=== PATIENT | male | born 1975 | race Caucasian/White ===

== ENCOUNTER → 2017-12-21 | Outpatient (CLI) | payer OTHER ==
[~2017-12-21] MED LIST: IOPAMIDOL 370 MG/ML 200 ML INFUS..BTL INJ ONE; SODIUM CHLORIDE 0.9% 50ML 50 ML ONE
--- NOTE | 2017-12-21 19:08 | Diagnostic Imaging Report ---
PROCEDURE: CT ABDOMEN WITH CONTRAST TECHNIQUE: The abdomen was scanned utilizing a multidetector helical scanner from the diaphragm to the iliac crest after the IV administration of 100 cc of Isovue 370 and the oral administration of water . Coronal and sagittal multiplanar reformations were obtained. COMPARISON: None. INDICATIONS: RIGHT UPPER ABDOMINAL PAIN. CHOLECYSTITIS FINDINGS: LOWER THORAX: Unremarkable. HEPATOBILIARY: Decreased attenuation of the hepatic parenchyma compared to the spleen, consistent with steatosis. No focal hepatic lesions. No biliary ductal dilatation. The gallbladder is unremarkable, without stones, sludge, wall thickening, or pericholecystic fluid. SPLEEN: No splenomegaly. PANCREAS: No focal masses or ductal dilatation. ADRENALS: No adrenal nodules. KIDNEYS: No hydronephrosis, stones, or solid mass lesions. PERITONEUM / RETROPERITONEUM: No free air or fluid. LYMPH NODES: No lymphadenopathy. VESSELS: Unremarkable. GI TRACT: Visualized portions of the bowel demonstrate no distention , obstruction or wall thickening. Stomach is moderately distended, but grossly unremarkable. BONES AND SOFT TISSUES: No acute bony abnormalities. No aggressive lytic lesions. IMPRESSION: 1. no acute abdominal abnormalities. Specifically, no acute abnormal findings in the right upper abdomen to explain the patient's pain. 2. No CT evidence of cholelithiasis or cholecystitis. Onesimo Haney M.D. Dictated by: Onesimo Haney M.D. on 12/21/2017 at 19:10 Electronically approved by: Onesimo Haney M.D. on 12/21/2017 at 19:10
== END ==
LOC: CT 17:22
PROVIDERS: ATTEND Internal Medicine
DX: R10.10 Upper abdominal pain, unspecified (principal); K29.90 Gastroduodenitis, unspecified, without bleeding; K31.84 Gastroparesis
CPT/HCPCS: 74160; Q9967

== ENCOUNTER 2017-12-27 17:57 | Inpatient (IN) | payer OTHER ==
[~2017-12-27] VITALS: Ht 175.3 cm; Wt 74.4 kg
--- OUTSIDE RECORDS SUMMARY | 2017-12-27 17:59 | XMS REPORT ---
Author Author [facility] Address Unknown Phone Unavailable Care Team Providers Care Decorating Instructor Name Role Phone RADHA GILMORE Unavailable Unavailable Problems This patient has no known problems. Allergies, Adverse Reactions, Alerts This patient has no known allergies or adverse reactions. Medications This patient has no known medications. Results Test Description Test Time Test Comments Text Results Atomic Results Result Comments CT ABDOMEN [place] [address] Patient Name: AMY HERRING MR # : [id number] : 1975 Age/Sex: 42/M Req #: [id number] Adm Physician: Ordered by: RADHA GILMORE MD Report #: [id number] Location: CT Room/Bed: Procedure: CT/CT ABDOMEN W Exam Date: 12/21/17 Exam Time: 1800 REPORT STATUS: Signed PROCEDURE: CT ABDOMEN WITH CONTRAST TECHNIQUE: The abdomen was scanned utilizing a multidetector helical scanner from the diaphragm to the iliac crest after the IV administration of 100 cc of Isovue 370 and the oral administration of water . Coronal and sagittal multiplanar reformations were obtained. COMPARISON: None. INDICATIONS: RIGHT UPPER ABDOMINAL PAIN. CHOLECYSTITIS FINDINGS: LOWER THORAX: Unremarkable. HEPATOBILIARY: Decreased attenuation of the hepatic parenchyma compared to the spleen, consistent with steatosis. No focal hepatic lesions. No biliary ductal dilatation. The gallbladder is unremarkable, without stones, sludge, wall thickening, or pericholecystic fluid. SPLEEN: No splenomegaly. PANCREAS: No focal masses or ductal dilatation. ADRENALS: No adrenal nodules. KIDNEYS: No hydronephrosis, stones, or solid mass lesions. PERITONEUM / RETROPERITONEUM: No free air or fluid. LYMPH NODES: No lymphadenopathy. VESSELS: Unremarkable. GI TRACT: Visualized portions of the bowel demonstrate no distention , obstruction or wall thickening. Stomach is moderately distended, but grossly unremarkable. BONES AND SOFT TISSUES: No acute bony abnormalities. No aggressive lytic lesions. IMPRESSION: 1. no acute abdominal abnormalities. Specifically, no acute abnormal findings in the right upper abdomen to explain the patient's pain. 2. No CT evidence of cholelithiasis or cholecystitis. Purvi Mendoza M.D. Dictated by: Purvi Mendoza M.D. on 12/21/2017 at 19:10 Electronically approved by: Purvi Mendoza M.D. on 12/21/2017 at 19:10 Dictated By: PURVI MENDOZA MD 09 Transcribed By: LIAT on 12/21/171909 COPY TO: RADHA GILMORE MD
--- OUTSIDE RECORDS SUMMARY | 2017-12-27 17:59 | XMS REPORT | Clinical Summary ---
Author Author [facility] Address Unknown Phone Unavailable Care Team Providers Care Lumber Cutter Name Role Phone Jenae Carr MD PCP Allergies No Known Allergies Current Medications Prescription Sig. Disp. Refills Start End Date Status Date ondansetron (ZOFRAN) 4 MG Take 4 mg by mouth 4 10/22/19 Discontin tablet (four) times a day as 18 ued needed for nausea or vomiting. canagliflozin-metformin Take 2 tablets by mouth 03/10/20 Discontin (INVOKAMET) 50-500 mg daily. 17 ued tablet sucralfate (CARAFATE) 1 Take 1 tablet (1 g total) 90 tablet 0 04/09/20 gram tablet by mouth 3 (three) times 17 17 a day for 30 days. insulin lispro (HumaLOG) Inject 0-7 Units under 10 mL 12 03/10/20 100 unit/mL injection the skin 3 (three) times 17 17 a day with meals for 30 days. insulin GLARGINE (LANTUS Inject 15 Units under the 5 pen 0 03/10/20 04/09/20 SOLOSTAR) 100 unit/mL skin nightly for 30 days. 17 17 injection (pen) ondansetron (ZOFRAN) 4 MG Take 1 tablet (4 mg 12 tablet 0 10/21/11/19/19 Discontin tablet total) by mouth every 6 18 18 ued (six) hours for 30 days. ondansetron (ZOFRAN) 4 MG Take 1 tablet (4 mg 20 tablet 0 10/21/11/20/19 Discontin tablet total) by mouth 4 (four) 18 18 ued times a day as needed for nausea or vomiting for up to 30 days. metoclopramide (REGLAN) Take 1 tablet (10 mg 120 tablet 0 11/20/19 12/20/19 10 MG tablet total) by mouth 4 (four) 18 18 times a day for 30 days. pantoprazole (PROTONIX) Take 1 tablet (40 mg 30 tablet 0 11/20/19 40 MG EC tablet total) by mouth daily for 18 18 30 days. insulin GLARGINE (LANTUS Inject 15 Units under the 4.5 mL 0 11/20/19 12/20/19 U-100 INSULIN) 100 skin nightly for 30 days. 18 18 unit/mL injection (vial) Active Problems Problem Noted Date Abdominal pain 11/16/2017 Overview: Added automatically from request for surgery [id number] Intractable vomiting 11/16/2017 Overview: Added automatically from request for surgery [id number] Dehydration 03/10/2017 Chronic superficial gastritis without bleeding 03/10/2017 Hyperglycemia 03/09/2017 Encounters Date Type Specialty Care Team Description 11/19/2017 Anesthesia Gastroenterology Marcia Dangelo MD Event 11/19/2017 Procedure Pass Gastroenterology 11/19/2017 Surgery Gastroenterology Jass Dave MD ESOPHAGOGASTRODUODENOSCOP Y (EGD) w/bx 11/18/2017 Anesthesia Gastroenterology Marcia Dangelo MD Event 11/18/2017 Procedure Pass Gastroenterology 11/18/2017 Surgery Gastroenterology Jass Dave MD ESOPHAGOGASTRODUODENOSCOP Y (EGD) 11/16/2017 [facility] General Internal Medicine Frederick Carr MD Abdominal pain, - Encounter unspecified abdominal 11/19/2017 location (Primary Dx); Intractable vomiting, presence of nausea not specified, unspecified vomiting type 11/16/2017 Orders Only General Internal Medicine Frederick Carr MD 10/21/2017 Emergency Emergency Medicine Ozzie Washington MD Vomiting without nausea, intractability of vomiting not specified, unspecified vomiting type (Primary Dx); Weakness 03/11/2017 Documentation Diabetes Services Tameka Cash RN 03/09/2017 [facility] General Internal Medicine Frederick Carr MD Hyperglycemia (Primary - Encounter Dx) 03/10/2017 03/09/2017 Orders Only General Internal Medicine Frederick Carr MD 03/08/2017 Lab Lab Diego Almanza MD Abdominal pain, unspecified location (Primary Dx) after 12/26/2016 Social History Tobacco Use Types Packs/Day Years Used Date Current Some Day Smoker Cigarettes Smokeless Tobacco: Never Used Alcohol Use Drinks/Week oz/Week Comments Yes 3-6 Cans of 1.8 - 3.6 ocassional once or 2x in a month beer Sex Assigned at Date Recorded Not on file Last Filed Vital Signs Vital Sign Reading Time Taken Blood Pressure 105/71 11/19/2017 11:23 AM CDT Pulse 75 11/19/2017 11:23 AM CDT Temperature 36.6 C (97.8 F) 11/19/2017 11:23 AM CDT Respiratory Rate 20 11/19/2017 11:23 AM CDT Oxygen Saturation 98% 11/19/2017 11:23 AM CDT Inhaled Oxygen - - Concentration Weight 74.8 kg (165 lb) 11/18/2017 9:04 AM CDT Height 175.3 cm (5' 9") 11/18/2017 9:04 AM CDT Body Mass Index 24.37 11/18/2017 9:04 AM CDT Plan of Treatment Health Maintenance Due Date Last Done Comments DIABETIC FOOT EXAM 01/10/1986 DIABETIC RETINAL EYE EXAM 01/10/1986 URINE MICROALBUMIN 01/10/1986 INFLUENZA VACCINE 02/16/2018 Procedures Procedure Name Priority Date/Time Associated Diagnosis Comments ESOPHAGOGASTRODUODENOSCOP 11/19/2017 Intractable vomiting, Y (EGD) w/bx 8:57 AM CDT presence of nausea not specified, unspecified vomiting type ESOPHAGOGASTRODUODENOSCOP 11/18/2017 Abdominal pain, Y (EGD) 10:00 AM CDT unspecified abdominal location after 12/26/2016 Results * Surgical pathology request (11/19/2017 10:03 AM) Component Value Ref Range Surgical pathology report See link below for PDF Lab Report Result status This is Final Report to [id number] Specimen Performing Laboratory [facility] [place] [place]Y AND GENOMIC MEDICINE [address] [place] [address] * POC glucose (11/17/2017 8:23 PM) Only the most recent of 10 results within the time period is included. Component Value Ref Range POC glucose 155 (H) 65 - 100 mg/dL Comment: Meter ID: [id number] Human Services Program Specialist: Jackson Frederick Specimen Performing Laboratory [facility] [place] [facility]OLOGY AND GENOMIC MEDICINE [address] [place] [address] * US Abdomen Complete (11/17/2017 6:12 PM) Specimen Performing Laboratory [facility] [address] [place] [address] Narrative EXAM: US ABDOMEN COMPLETE CLINICAL DATA:Abdominal pain, pancreatitis COMPARISON: None. FINDINGS: LIVER:The liver demonstrates normal echogenicity without focal mass or intrahepatic biliary ductal dilatation. MPV:Doppler evaluation of the portal vein demonstrates normal hepatopetal flow. GALLBLADDER:The gallbladder is without evidence of calculi. The gallbladder wall is not thickened and there is no pericholecystic fluid. CBD: Common bile duct is not dilated measuring 2 mm. PANCREAS:The visualized portions of the pancreas are within normal limits. SPLEEN:The spleen is homogeneous and not enlarged. KIDNEYS:The kidneys are normal in size and echogenicity. There is no evidence of hydronephrosis. AORTA:The visualized upper abdominal aorta demonstrates no evidence of ectasia or aneurysm. IVC:The visualized portions of the inferior vena cava are unremarkable. ASCITES: No abnormal abdominal fluid collections are visualized. There is no evidence of ascites. PLEURAL EFFUSION:There are no pleural effusions. IMPRESSION: Normal abdominal ultrasound examination. [facility]-[id number] Procedure Note [facility], Radiology Results Incoming - 11/17/2017 6:20 PM CDT EXAM: US ABDOMEN COMPLETE CLINICAL DATA: Abdominal pain, pancreatitis COMPARISON: None. FINDINGS: LIVER: The liver demonstrates normal echogenicity without focal mass or intrahepatic biliary ductal dilatation. MPV: Doppler evaluation of the portal vein demonstrates normal hepatopetal flow. GALLBLADDER: The gallbladder is without evidence of calculi. The gallbladder wall is not thickened and there is no pericholecystic fluid. CBD: Common bile duct is not dilated measuring 2 mm. PANCREAS: The visualized portions of the pancreas are within normal limits. SPLEEN: The spleen is homogeneous and not enlarged. KIDNEYS: The kidneys are normal in size and echogenicity. There is no evidence of hydronephrosis. AORTA: The visualized upper abdominal aorta demonstrates no evidence of ectasia or aneurysm. IVC: The visualized portions of the inferior vena cava are unremarkable. ASCITES: No abnormal abdominal fluid collections are visualized. There is no evidence of ascites. PLEURAL EFFUSION: There are no pleural effusions. IMPRESSION: Normal abdominal ultrasound examination. [facility]-[id number] * Urinalysis screen and microscopy, with reflex to culture (11/17/2017 1:51 PM) Only the most recent of 3 results within the time period is included. Component Value Ref Range Specimen site Clean catch Color, UA Sue Appearance, UA Clear Specific gravity, UA 1.028 1.001 - 1.035 pH, UA 6.0 5.0 - 8.5 Protein, UA 1+ (A) Negative Glucose, UA Negative Negative Ketones, UA 1+ (A) Negative Bilirubin, UA Negative Negative Blood, UA Negative Negative Nitrite, UA Negative Negative Urobilinogen, UA 4.0 (A) <2.0 Leukocyte esterase, UA Negative Negative WBC, UA 4 (H) 0 - 1 /HPF RBC, UA 2 0 - 5 /HPF Bacteria, UA Trace None seen Yeast, UA None seen Yeast with pseudohyphae, None seen UA Hyaline casts, UA 4 /LPF Specimen Performing Laboratory Urine [facility] [place] [facility]OLOGY AND GENOMIC MEDICINE [address] [place] [address] * Gram stain (11/17/2017 1:50 PM) Component Value Ref Range Gram stain result No WBC's or organisms seen. Comment: Specimen Information Specimen Source: Urine Specimen Site: Clean catch Specimen Performing Laboratory Urine [facility] DEPARTMENT OF PATHOLOGY AND GENOMIC MEDICINE [address] [place] [address] * Urine culture (11/17/2017 1:50 PM) Only the most recent of 3 results within the time period is included. Component Value Ref Range Urine culture isolate Mixed Gram positive kaela 10-2 cfu/ml (A) Comment: Specimen Information Specimen Source: Urine Specimen Site: Clean catch Specimen Performing Laboratory Urine [facility] DEPARTMENT OF PATHOLOGY AND GENOMIC MEDICINE [address] [place] [address] * Estimated GFR (11/17/2017 6:30 AM) Only the most recent of 6 results within the time period is included. Component Value Ref Range GFR Non Af Amer >90 mL/min/1.73 m2 GFR Af Amer >90 mL/min/1.73 m2 Comment: Chronic kidney disease: <60 mL/min/1.73m2 Kidney failure: <15 mL/min/1.73m2 The estimated GFR is calculated from the IDMS-traceable Modification of Diet in Renal Disease Equation. The accuracy of the calculation is poor when the creatinine is normal. Calculated values >90 mL/min/1.73m2 are not reported. This equation has not been validated in children (<18 years), women, the elderly (>70 years), or ethnic groups other than Caucasians and Americans. Specimen Performing Laboratory Plasma specimen [facility] [place] [facility] OF [facility]OLOGY AND GENOMIC MEDICINE [address] [place] [address] * CBC with platelet and differential (11/17/2017 6:30 AM) Only the most recent of 5 results within the time period is included. Component Value Ref Range WBC 7.4 4.2 - 11.0 k/uL RBC 4.81 4.04 - 5.86 m/uL HGB 14.3 13.0 - 17.3 g/dL HCT 42.0 34.0 - 45.0 % MCV 87.3 80.0 - 98.0 fL MCH 29.7 27.0 - 34.0 pg MCHC 34.0 31.5 - 36.5 g/dL RDW - SD 39.8 37.0 - 51.0 fL MPV 10.7 (H) 7.4 - 10.4 fL Platelet count 214 150 - 400 k/uL Nucleated RBC 0.00 /100 WBC Neutrophils 57.6 36.0 - 66.0 % Lymphocytes 30.1 24.0 - 44.0 % Monocytes 10.6 (H) 0.0 - 6.0 % Eosinophils 0.7 0.0 - 6.0 % Basophils 0.9 0.0 - 1.2 % Immature granulocytes 0.1 0.0 - 1.0 % Specimen Performing Laboratory Blood [facility] [place] [facility] OF [facility]OLOGY AND GENOMIC MEDICINE [address] [place] [address] * Lipase level (11/17/2017 6:30 AM) Only the most recent of 4 results within the time period is included. Component Value Ref Range Lipase 99 65 - 230 U/L Specimen Performing Laboratory Plasma specimen [facility] [place] [facility] OF PATHOLOGY AND GENOMIC MEDICINE [address] [place] [address] * Basic metabolic panel (11/17/2017 6:30 AM) Component Value Ref Range Sodium 142 135 - 150 mEq/L Potassium 3.5 3.5 - 5.0 mEq/L Chloride 104 100 - 109 mEq/L CO2 29 24 - 32 mmol/L Anion gap 9 7 - 15 mEq/L Comment: Starting from October , anion gap calculation no longer incorporates potassium. Please note the change. BUN 12 7 - 18 mg/dL Creatinine 0.9 0.8 - 1.5 mg/dL Glucose 120 (H) 65 - 100 mg/dL Calcium 9.6 8.6 - 10.7 mg/dL Specimen Performing Laboratory Plasma specimen [facility] [place] [facility] OF PATHOLOGY AND GENOMIC MEDICINE [address] [place] [address] * Comprehensive metabolic panel (11/16/2017 8:08 PM) Only the most recent of 5 results within the time period is included. Component Value Ref Range Sodium 141 135 - 150 mEq/L Potassium 3.6 3.5 - 5.0 mEq/L Chloride 101 100 - 109 mEq/L CO2 31 24 - 32 mmol/L Anion gap 9 7 - 15 mEq/L Comment: Starting from October , anion gap calculation no longer incorporates potassium. Please note the change. BUN 11 7 - 18 mg/dL Creatinine 1.1 0.8 - 1.5 mg/dL Glucose 138 (H) 65 - 100 mg/dL Calcium 9.6 8.6 - 10.7 mg/dL Protein 8.9 (H) 6.3 - 8.2 g/dL Albumin 4.3 3.2 - 5.0 g/dL A/G ratio 0.9 0.7 - 3.8 Alkaline phosphatase 86 30 - 120 U/L AST 16 15 - 37 U/L ALT 41 30 - 65 U/L Total bilirubin 0.9 0.2 - 1.2 mg/dL Specimen Performing Laboratory Plasma specimen [facility] [place] [facility] OF PATHOLOGY AND GENOMIC MEDICINE [address] [place] [address] * Venous blood gas (10/21/2017 7:39 PM) Component Value Ref Manager Marketing JDZD Collection site RAC O2 therapy ROOM AIR pH, venous 7.411 7.320 - 7.420 units pCO2, venous 52.0 (H) 45.0 - 51.0 mmHg pO2, venous 22.7 (L) 25.0 - 40.0 mmHg O2 saturation, venous 39.6 (L) 40.0 - 70.0 % Base excess, venous 8.4 (H) -2.0 - 2.0 mEq/L Bicarbonate 33.0 (H) 21.0 - 28.0 mEq/L O2 content 9.2 VOL% Carboxyhemoglobin 1.3 0.0 - 1.4 % Comment: Reference Ranges: Carboxyhemoglobin Non smoker: 0.0 - 2.0% Smoker: 2.1 - 5.0% Heavy smoker: 5.1 - 9% Methemoglobin 0.3 0.0 - 1.0 % Hemoglobin, blood gas 16.9 14.0 - 18.0 g/dL Specimen Performing Laboratory Blood [facility] [place] [facility] OF [facility]OLOGY AND GENOMIC MEDICINE [address] [facility] [address] * Beta hydroxybutyrate (10/21/2017 7:05 PM) Only the most recent of 3 results within the time period is included. Component Value Ref Range Beta hydroxybutyrate 1.45 (H) 0.02 - 0.27 mmol/L Specimen Performing Laboratory Blood [facility] [place] [facility] OF [facility]OLOGY AND GENOMIC MEDICINE [address] [place] [address] [place] [address] * Urine drugs of abuse screen (03/10/2017 9:03 AM) Component Value Ref Range Amphetamine screen, urine NEG Barbiturate screen, urine NEG Benzodiazepine screen, NEG urine Cocaine screen, urine NEG Methadone screen, urine NEG Opiates screen, urine NEG Phencyclidine screen, NEG urine Cannabinoid screen, urine NEG Comment: Drug screen minimum concentration of detectability Amphetamines 1000 ng/mL Methamphetamines 1000 ng/mL Barbiturates 300 ng/mL Benzodiazepines 300 ng/mL Cocaine 300 ng/mL Methadone 3 00 ng/mL Opiates 300 ng/mL Phencyclidine 25 ng/mL Cannabinoids 50 ng/mL Tricyclics 1000 ng/mL Negative test results indicates presumptive evidence of lack of clinically significant drug concentration in this urine specimen. Positive test results are presumptive evidence of clinically significant drug concentration in this urine specimen. Testing performed for medical purposes only. Specimen Performing Laboratory Urine [facility] [place] [facility] OF [facility]OLOGY AND GENOMIC MEDICINE [address] [place] [address] [place] [address] * Blood culture, aerobic & anaerobic (03/09/2017 6:55 PM) Only the most recent of 2 results within the time period is included. Component Value Ref Range Blood culture isolate No growth after 5 days of incubation. Comment: Specimen Information Specimen Source: Blood Specimen Site: Peripheral Hand Left Specimen Performing Laboratory Blood [facility] DEPARTMENT OF PATHOLOGY AND GENOMIC MEDICINE [address] [place] [address] * ECG 12 lead (03/09/2017 6:44 PM) Component Value Ref Range Ventricular rate 89 Atrial rate 89 WY interval 138 QRSD interval 84 QT interval 366 QTC interval 445 P axis 1 75 QRS axis 1 84 T wave axis 73 EKG impression Normal sinus rhythm-Nonspecific ST abnormality-Abnormal ECG-No previous ECGs available- Specimen Performing Laboratory [facility] MUSE [address] [place] [address] * CK-MB (03/09/2017 6:36 PM) Component Value Ref Range CK-MB 0.6 0.5 - 3.2 ng/mL Specimen Performing Laboratory Plasma specimen [facility] [place] [facility] OF [facility]OLOGY AND GENOMIC MEDICINE [address] [place] [address] [place] [address] * Troponin (03/09/2017 6:36 PM) Component Value Ref Range Troponin <0.01 0.00 - 0.60 ng/mL Comment: 0.11 - 1.49 ng/ml May indicate increased risk of acute coronary syndrome. >=1.5 ng/ml Consistent with acute myocardial infarction. The diagnostic value of a single normal or non-diagnostic result is questionable. Serial samples at 2-6 hour intervals are required to rule out acute myocardial injury. Specimen Performing Laboratory Plasma specimen [facility] [place] [facility] OF [facility]OLOGY AND GENOMIC MEDICINE [address] [place] [address] [place] [address] * Magnesium level (03/09/2017 6:36 PM) Component Value Ref Range Magnesium 2.30 1.60 - 2.40 mg/dL Specimen Performing Laboratory Plasma specimen [facility] [place] [facility] OF [facility]OLOGY AND GENOMIC MEDICINE [address] [place] [address] [place] [address] * Hemoglobin A1c (03/09/2017 6:36 PM) Component Value Ref Range Hemoglobin A1C 11.1 (H) 4.0 - 6.0 % Comment: Less than 6% - Goal of therapy for Type II Diabetes Less than 7%- Goal of therapy for Type I Diabetes Less than 8%- Acceptable control for Type I or Type II Diabetes Greater than 8%- Unacceptable control; action indicated. (A [id number]) Specimen Performing Laboratory Blood [facility] [place] [facility] OF [facility]OLOGY AND GENOMIC MEDICINE [address] [place] [address] [place] [address] * Creatine kinase, total (CPK) (03/09/2017 6:36 PM) Component Value Ref Range Creatine kinase 49 (L) 61 - 224 U/L Specimen Performing Laboratory Plasma specimen [facility] [place] [facility] OF [facility]OLOGY AND GENOMIC MEDICINE [address] [place] [address] * Amylase level (03/09/2017 6:36 PM) Only the most recent of 2 results within the time period is included. Component Value Ref Range Amylase 75 34 - 122 U/L Specimen Performing Laboratory Plasma specimen [facility] [place] [facility] OF PATHOLOGY AND GENOMIC MEDICINE [address] [place] [address] after 12/26/2016 Insurance Payer Benefit Subscriber ID Type Phone Address Plan / Group [facility] xxxxxxxxx HMO/PPO THCARE CHOICE/[place] + [place] [address]
[2017-12-27 18:48] LABS: BASOPHILS # (AUTO) 0.1 (0.0-0.1); BASOPHILS % 0.9 % (0.0-1.0); EOSINOPHILS # (AUTO) 0.1 (0.0-0.4); EOSINOPHILS % 1.1 % (0.0-6.0); HEMOGLOBIN 16.1 g/dL (14.0-18.0); LYMPHOCYTES # (AUTO) 1.9 (1.0-3.2); LYMPHOCYTES % 24.9 % (18.0-39.1); MEAN CORPUSCULAR HEMOGLOBIN 29.8 pg (28-32); MEAN CORPUSCULAR HGB CONC 34.3 g/dL (31-35); MEAN CORPUSCULAR VOLUME 86.9 fL (81-99); MONOCYTES # (AUTO) 0.6 (0.2-0.8); MONOCYTES % 8.1 % (4.4-11.3); NEUTROPHILS # (AUTO) 4.9 (2.1-6.9); NEUTROPHILS % 64.6 % (38.7-80.0); PLATELET COUNT 283 x10e3/uL (140-360); RED BLOOD COUNT 5.41 x10e6/uL (4.3-5.7); RED CELL DISTRIBUTION WIDTH 12.1 % (11.7-14.4)
[2017-12-27 19:07] LABS: ALANINE AMINOTRANSFERASE 23 IU/L (0-55); ALBUMIN 4.7 g/dL (3.5-5.0); ALBUMIN/GLOBULIN RATIO 1.2 (0.8-2.0); ALKALINE PHOSPHATASE 72 IU/L (40-150); ANION GAP 16.9 mmol/L (8-16); BLOOD UREA NITROGEN 17 mg/dL (7-26); BUN/CREATININE RATIO 16 (6-25); CALCIUM 10.3 mg/dL (8.4-10.2); CARBON DIOXIDE 28 mmol/L (22-29); CHLORIDE 99 mmol/L (98-107); CREATININE, SERUM 1.09 mg/dL (0.72-1.25); EST GLOMERULAR FILTRATION RATE > 60 ML/MIN (60-); GLUCOSE 101 mg/dL (74-118); POTASSIUM 3.9 mmol/L (3.5-5.1); SODIUM 140 mmol/L (136-145)
[2017-12-27 19:10] LABS: BILIRUBIN,URINE 2+ (NEGATIVE); CLARITY,URINE CLEAR (CLEAR); COLOR,URINE ORANGE (YELLOW); KETONES,URINE 2+ (NEGATIVE); LEUKOCYTE ESTERASE ,URINE NEGATIVE (NEGATIVE); NITRITE,URINE NEGATIVE (NEGATIVE); PROTEIN,URINE DIPSTICK 1+ (NEGATIVE); URINE UROBILINOGEN 1 mg/dL (0.2 - 1)
[2017-12-27 19:17] LABS: AMYLASE 141 U/L (25-125); LIPASE 21 U/L (8-78)
[2017-12-27 19:22] LABS: EPITHELIAL CELLS,URINE FEW /LPF; MUCUS,URINE FEW (RARE); RBC,URINE 0-5 /HPF (0-5); WBC,URINE (MAN) 0-5 /HPF (0-5)
[2017-12-27 19:30] LABS: AMPHETAMINES SCREEN,URINE NEGATIVE (NEGATIVE); BENZODIAZEPINES SCREEN,URINE NEGATIVE (NEGATIVE); PHENCYCLIDINE SCREEN,URINE NEGATIVE (NEGATIVE)
[2017-12-27] MEDS ORDERED: PANTOPRAZOLE 40 MG 10ML VIAL IV STA (19:38)
[2017-12-27] MEDS ORDERED: ONDANSETRON HCL INJ 2 MG/ML VIAL IV STA (19:38)
[2017-12-27] MEDS ORDERED: SODIUM CHLORIDE 0.9% 1000ML 1,000 ML IV SCH (19:45)
[2017-12-27] MEDS ORDERED: METOCLOPRAMIDE HCL 10 MG/2ML VIAL IV ONE (20:00)
[2017-12-27] MEDS ORDERED: ONDANSETRON HCL 4 MG ORAL DISINTEGRATING TAB PO ONE (20:15)
[2017-12-27] MEDS ORDERED: DEXTROSE 50% SYRINGE 50 ML IV PRN (20:30)
[2017-12-27] MEDS ORDERED: ONDANSETRON HCL INJ 2 MG/ML VIAL IV PRN (20:30)
[2017-12-27] MEDS ORDERED: SODIUM CHLORIDE 0.9% 1000ML 1,000 ML IV ONE (20:30)
[2017-12-27] MEDS ORDERED: MORPHINE SULFATE 2 MG/ML SYR IV PRN (20:30)
[2017-12-27] MEDS ORDERED: INSULIN REGULAR, HUMAN 100 UNIT/1 ML 3ML VIAL SQ SCH (21:00)
--- OUTSIDE RECORDS SUMMARY | 2017-12-27 21:14 | XMS REPORT | Clinical Summary ---
Author Author [employer] Address Unknown Phone Unavailable Care Team Providers Care Manager Card Name Role Phone Jenae Carr MD PCP [...] Overview: Added automatically from request for surgery [id number] Intractable vomiting 11/16/2017 Overview: Added automatically from request for surgery [id number] Dehydration 03/10/2017 Chronic superficial gastritis without bleeding 03/10/2017 Hyperglycemia 03/09/2017 Encounters Date Type Specialty Care Team Description 11/19/2017 Anesthesia Gastroenterology Marcia Dangelo MD Event 11/19/2017 Procedure Pass Gastroenterology 11/19/2017 Surgery Gastroenterology Jass Dave MD ESOPHAGOGASTRODUODENOSCOP Y (EGD) w/bx 11/18/2017 Anesthesia Gastroenterology Marcia Dangelo MD Event 11/18/2017 Procedure Pass Gastroenterology 11/18/2017 Surgery Gastroenterology Jass Dave MD ESOPHAGOGASTRODUODENOSCOP Y (EGD) 11/16/2017 [facility] General Internal Medicine Frederick Carr MD [...] Documentation Diabetes Services Tameka Cash RN 03/09/2017 [facility] General Internal Medicine Frederick Carr MD [...] Result status This is Final Report to [id number] Specimen Performing Laboratory [facility]OM[facility]IC[facility] [place] [address] * POC glucose (11/17/2017 8:23 PM) Only the most recent of 10 results within the time period is included. Component Value Ref Range POC glucose 155 (H) 65 - 100 mg/dL Comment: Meter ID: [id number] Business Account Specialist: Jackson Frederick Specimen Performing Laboratory [facility] [address] [place] [address] * US Abdomen Complete (11/17/2017 6:12 PM) Specimen Performing Laboratory [facility] [address] [place] [address] Narrative EXAM: US ABDOMEN COMPLETE CLINICAL DATA:Abdominal [...] pleural effusions. IMPRESSION: Normal abdominal ultrasound examination. [facility]-[id number] Procedure Note [facility], Radiology Results Incoming - 11/17/2017 6:20 [...] pleural effusions. IMPRESSION: Normal abdominal ultrasound examination. [facility]-[id number] * Urinalysis screen and microscopy, with reflex [...] UA 4 /LPF Specimen Performing Laboratory Urine [facility] [address] [place] [address] * Gram stain (11/17/2017 1:50 PM) Component Value Ref Range Gram stain result No WBC's or organisms seen. Comment: Specimen Information Specimen Source: Urine Specimen Site: Clean catch Specimen Performing Laboratory Urine [facility] DEPARTMENT OF PATHOLOGY AND GENOMIC MEDICINE [address] [place] [address] * Urine culture (11/17/2017 1:50 PM) Only the most recent of 3 results within the time period is included. Component Value Ref Range Urine culture isolate Mixed Gram positive kaela 10-2 cfu/ml (A) Comment: Specimen Information Specimen Source: Urine Specimen Site: Clean catch Specimen Performing Laboratory Urine [facility] DEPARTMENT OF PATHOLOGY AND GENOMIC MEDICINE [address] [place] [address] * Estimated GFR (11/17/2017 6:30 AM) Only [...] and Americans. Specimen Performing Laboratory Plasma specimen [facility]OM[facility]IC[facility] [address] [place] [address] * CBC with platelet and differential (11/17/2017 [...] - 1.0 % Specimen Performing Laboratory Blood [facility]OMIC MEDICINE [address] [place] [address] * Lipase level (11/17/2017 6:30 AM) Only the most recent of 4 results within the time period is included. Component Value Ref Range Lipase 99 65 - 230 U/L Specimen Performing Laboratory Plasma specimen [facility]OM[facility] [address] [place] [address] * Basic metabolic panel (11/17/2017 6:30 AM) [...] 10.7 mg/dL Specimen Performing Laboratory Plasma specimen [facility]OM[facility] [address] [place] [address] * Comprehensive metabolic panel (11/16/2017 8:08 PM) [...] 1.2 mg/dL Specimen Performing Laboratory Plasma specimen [facility]OMIC [facility]IC[facility] [address] [place] [address] * Venous blood gas (10/21/2017 7:39 PM) Component Value Ref Produce Production Team Member JDZD Collection site RAC O2 therapy ROOM [...] - 18.0 g/dL Specimen Performing Laboratory Blood [facility] MED[facility] [address] [facility] [place] [place] [address] * Beta hydroxybutyrate (10/21/2017 7:05 PM) Only the most recent of 3 results within the time period is included. Component Value Ref Range Beta hydroxybutyrate 1.45 (H) 0.02 - 0.27 mmol/L Specimen Performing Laboratory Blood [facility]OM[facility] MEDIC[facility] [address] [place] [address] [place] [address] * Urine drugs of abuse screen (03/10/2017 [...] medical purposes only. Specimen Performing Laboratory Urine [facility]OMIC MEDICINE [address] [place] [address] [place] [address] * Blood culture, aerobic & anaerobic (03/09/2017 6:55 PM) Only the most recent of 2 results within the time period is included. Component Value Ref Range Blood culture isolate No growth after 5 days of incubation. Comment: Specimen Information Specimen Source: Blood Specimen Site: Peripheral Hand Left Specimen Performing Laboratory Blood [facility] DEPARTMENT OF PATHOLOGY AND GENOMIC MEDICINE [address] [place] [address] * ECG 12 lead (03/09/2017 6:44 PM) Component Value Ref Range Ventricular rate 89 Atrial rate 89 NH interval 138 QRSD interval 84 QT interval 366 QTC interval 445 P axis 1 75 QRS axis 1 84 T wave axis 73 EKG impression Normal sinus rhythm-Nonspecific ST abnormality-Abnormal ECG-No previous ECGs available- Specimen Performing Laboratory [facility] [address] [place] [address] * CK-MB (03/09/2017 6:36 PM) Component Value Ref Range CK-MB 0.6 0.5 - 3.2 ng/mL Specimen Performing Laboratory Plasma specimen [facility]OMIC [facility]IC[facility] [address] [place] [address] [place] [address] * Troponin (03/09/2017 6:36 PM) Component Value [...] myocardial injury. Specimen Performing Laboratory Plasma specimen [facility]OMIC [facility]ICINE [address] [place] [address] [place] [address] * Magnesium level (03/09/2017 6:36 PM) Component Value Ref Range Magnesium 2.30 1.60 - 2.40 mg/dL Specimen Performing Laboratory Plasma specimen [facility]OMIC [facility]ICINE [address] [place] [address] [place] [address] * Hemoglobin A1c (03/09/2017 6:36 PM) Component [...] indicated. (A DA94) Specimen Performing Laboratory Blood [facility]OM[facility]IC[facility] [address] [place] [address] [place] [address] * Creatine kinase, total (CPK) (03/09/2017 6:36 PM) Component Value Ref Range Creatine kinase 49 (L) 61 - 224 U/L Specimen Performing Laboratory Plasma specimen [facility]OMIC [facility]IC[facility] [address] [place] [address] * Amylase level (03/09/2017 6:36 PM) Only the most recent of 2 results within the time period is included. Component Value Ref Range Amylase 75 34 - 122 U/L Specimen Performing Laboratory Plasma specimen [facility]OM[facility] [address] [place] [address] after 12/26/2016 Insurance Payer Benefit Subscriber ID Type Phone Address Plan / Group [facility] xxxxxxxxx HMO/PPO THCARE CHOICE/[place] + [place] [address]
[2017-12-27] MEDS: SODIUM CHLORIDE 0.9% 1000ML 1,000 ML IV SCH (21:46)
[2017-12-27] MEDS ORDERED: NORVASC5 MG PO (21:50)
[2017-12-27] MEDS ORDERED: PANTOPRAZOLE SO40 MG PO (22:42)
[2017-12-27] MEDS ORDERED: METOCLOPRAMIDE10 MG PO (22:42)
[2017-12-27] MEDS ORDERED: LANTUS 3ML100 UNITS/ SQ (22:42)
[2017-12-27] MEDS: INSULIN REGULAR, HUMAN 100 UNIT/1 ML 3ML VIAL SQ SCH (23:20)
[2017-12-27 23:28] VITALS: BP 127/58
[2017-12-27] MEDS: METOCLOPRAMIDE HCL 10 MG/2ML VIAL IV SCH (23:33)
[2017-12-27 23:39] VITALS: BP 127/58
[2017-12-28] VITALS (7 sets, daily range): BP systolic 109–134; BP diastolic 64–81
[2017-12-28] MEDS: SODIUM CHLORIDE 0.9% 1000ML 1,000 ML IV SCH (05:24)
[2017-12-28] MEDS: METOCLOPRAMIDE HCL 10 MG/2ML VIAL IV SCH ×3 (06:00→18:00)
[2017-12-28] MEDS: INSULIN REGULAR, HUMAN 100 UNIT/1 ML 3ML VIAL SQ SCH ×3 (06:00→18:00)
[2017-12-28 06:26] LABS: BASOPHILS # (AUTO) 0.1 (0.0-0.1); BASOPHILS % 1.1 % (0.0-1.0); EOSINOPHILS # (AUTO) 0.2 (0.0-0.4); EOSINOPHILS % 2.3 % (0.0-6.0); HEMATOCRIT 39.3 % (38.2-49.6); HEMOGLOBIN 13.4 g/dL (14.0-18.0); LYMPHOCYTES # (AUTO) 2.5 (1.0-3.2); LYMPHOCYTES % 37.6 % (18.0-39.1); MEAN CORPUSCULAR HEMOGLOBIN 29.5 pg (28-32); MEAN CORPUSCULAR HGB CONC 34.1 g/dL (31-35); MEAN CORPUSCULAR VOLUME 86.6 fL (81-99); MONOCYTES # (AUTO) 0.6 (0.2-0.8); MONOCYTES % 9.4 % (4.4-11.3); NEUTROPHILS # (AUTO) 3.3 (2.1-6.9); NEUTROPHILS % 49.3 % (38.7-80.0); PLATELET COUNT 237 x10e3/uL (140-360); RED BLOOD COUNT 4.54 x10e6/uL (4.3-5.7)
[2017-12-28 06:55] LABS: ALANINE AMINOTRANSFERASE 18 IU/L (0-55); ALBUMIN 3.8 g/dL (3.5-5.0); ALBUMIN/GLOBULIN RATIO 1.3 (0.8-2.0); ALKALINE PHOSPHATASE 56 IU/L (40-150); ANION GAP 11.4 mmol/L (8-16); BLOOD UREA NITROGEN 14 mg/dL (7-26); BUN/CREATININE RATIO 18 (6-25); CARBON DIOXIDE 26 mmol/L (22-29); CHLORIDE 105 mmol/L (98-107); EST GLOMERULAR FILTRATION RATE > 60 ML/MIN (60-); GLUCOSE 70 mg/dL (74-118); LIPASE 20 U/L (8-78); POTASSIUM 3.4 mmol/L (3.5-5.1); SODIUM 139 mmol/L (136-145)
[2017-12-28] MEDS: PANTOPRAZOLE 40 MG 10ML VIAL IV SCH ×2 (09:00→17:00)
--- NOTE | 2017-12-28 11:01 | History and Physical ---
A 42-year-old male patient of mine presented with the complaint of severe abdominal pain, nausea and vomiting, and unable to keep down any food. HISTORY OF PRESENT ILLNESS: Mr. Zackery Masterson is a 42-year-old male patient presented with right upper quadrant and right epigastric area pain, tenderness, nausea, vomiting, and inability to keep up with oral food. The patient was admitted to the hospital. Earlier in the ER, had been seen by the GI doctor. The patient continued to have severe problem. EGD was done. The patient had in the right lung. The patient was not improving. CT scan outpatient was done. The patient had a high amylase and lipase. The patient was referred to GI as an outpatient. Yesterday, the patient came in with severe symptoms. The patient was having significant pain and was dehydrated. The patient was sent to the hospital for admission. ALLERGIES: NO KNOWN DRUG ALLERGIES. MEDICATIONS: The patient was on Protonix, Reglan and Lantus. SOCIAL HISTORY: Denies smoking. Denies alcohol. FAMILY HISTORY: Diabetes mellitus. Endoscopy was done. REVIEW OF SYSTEMS: Per history of present illness. PHYSICAL EXAMINATION GENERAL: He is a male patient lying in bed not in acute distress. VITALS: Temperature 98.6, pulse 75, blood pressure 130/80, respirations 20. HEENT: Normocephalic and atraumatic. No lymphadenopathy. LUNGS: Bilateral equal air entry. No rales. No rhonchi. HEART: S1 and S2 regular. ABDOMEN: Soft. Epigastric tenderness present. NEUROLOGICAL: No focal neurological deficit. ADMISSION IMPRESSION/DIAGNOSES 1. Intractable epigastric abdominal pain. 2. Gastritis. 3. Possible pancreatitis. 4. Dehydration. 5. Suspect cholecystitis. 6. Diabetes mellitus with gastroparesis. PLAN: The patient will be admitted with the above diagnoses. Will treat the patient with IV fluids and Protonix will be given. GI consult, Dr. Urena. The patient will be getting gastric emptying study and HIDA scan. Job#: [id number] [place]
[2017-12-28] MEDS: KCL 20MEQ/.9 SOD CHL 1,000 ML IV SCH (13:20)
[2017-12-28] MEDS ORDERED: SINCALIDE 3 MCG/VIAL INJ ONE (15:23)
--- NOTE | 2017-12-28 20:14 | Diagnostic Imaging Report ---
Solid-phase gastric emptying study Reason for examination: 42 M with chronic nausea and vomiting The protocol used for this study is based on the Consensus Recommendations for Gastric Scintigraphy by the [place] [employer] Society and the Society of Nuclear Medicine. Clinical information: The patient is diabetic; blood glucose level this morning is 67 mg/dL. The patient has not had previous gastrointestinal surgery. The patient is taking expected to metoclopramide as recently as yesterday; this may affect gastric motility. The patient has been fasting for at least 6 hours prior to this exam. Radiopharmaceutical: Tc-99m sulfur colloid 1 mCi Report: The radiopharmaceutical was added to 1/2 cup egg whites that were then prepared and served with 2 pieces of white bread toasted, 30 grams of jam and 4 ounces of water. The patient took the meal orally without difficulty. Images were obtained of the abdomen in the anterior and posterior projections at 10 minutes post the meal and at 1and 2 hours. Uptake was determined from the geometric mean of the anterior and posterior counts and the counts were corrected for decay of the radiolabel. The percent gastric retention of the labeled meal at: 1 hour was 83% (normal 30-90%) 2 hours was 67% (normal <60; if >55%, study is abnormal) Impression: The pattern of gastric emptying is prolonged. Scan findings support the clinical diagnosis of gastroparesis. Signed by: Dr. Kiki Funes M.D. on 12/28/2017 8:11 PM
--- NOTE | 2017-12-28 20:17 | Diagnostic Imaging Report ---
Hepatobiliary Scan with Gallbladder Ejection Fraction Clinical information: 42 M with nausea and vomiting and abdominal pain. Report: Following intravenous administration of 6.8 millicuries of Tc-99m mebrofenin, dynamic images of the abdomen in the anterior projection were obtained through 30 minutes. Sincalide (CCK analog) 1.7 micrograms was administered intravenously over 30 minutes with additional imaging for determination of gallbladder ejection fraction. Perfusion to the liver is normal. Extraction of tracer from the blood pool by the liver parenchyma is normal. Tracer is seen promptly within the biliary tract. The gallbladder begins to fill by 10 minutes post-injection of tracer and fills adequately. Tracer is seen in the small bowel by 18 minutes. The gallbladder ejection fraction with administration of sincalide is 65% (normal greater than 40%). Impression: 1. Filling of the gallbladder excludes the diagnosis of acute cystic duct obstruction/acute cholecystitis. 2. Normal gallbladder ejection fraction of 65% does not support the clinical diagnosis of chronic cholecystitis/gallbladder dyskinesia. Signed by: Dr. Kiki Funes M.D. on 12/28/2017 8:13 PM
[2017-12-29] VITALS: BP 98/63
[2017-12-29] MEDS: KCL 20MEQ/.9 SOD CHL 1,000 ML IV SCH (00:25)
[2017-12-29 04:00] VITALS: BP 106/63
[2017-12-29] MEDS: METOCLOPRAMIDE HCL 10 MG/2ML VIAL IV SCH ×2 (05:49)
[2017-12-29] MEDS: INSULIN REGULAR, HUMAN 100 UNIT/1 ML 3ML VIAL SQ SCH ×2 (06:00)
[2017-12-29 06:11] LABS: BASOPHILS # (AUTO) 0.1 (0.0-0.1); BASOPHILS % 0.9 % (0.0-1.0); EOSINOPHILS # (AUTO) 0.4 (0.0-0.4); EOSINOPHILS % 5.5 % (0.0-6.0); HEMATOCRIT 36.5 % (38.2-49.6); HEMOGLOBIN 12.7 g/dL (14.0-18.0); LYMPHOCYTES # (AUTO) 2.9 (1.0-3.2); MEAN CORPUSCULAR HEMOGLOBIN 29.8 pg (28-32); MEAN CORPUSCULAR HGB CONC 34.8 g/dL (31-35); MEAN CORPUSCULAR VOLUME 85.7 fL (81-99); MONOCYTES # (AUTO) 0.6 (0.2-0.8); MONOCYTES % 9.8 % (4.4-11.3); NEUTROPHILS # (AUTO) 2.5 (2.1-6.9); NEUTROPHILS % 38.6 % (38.7-80.0); PLATELET COUNT 217 x10e3/uL (140-360); RED BLOOD COUNT 4.26 x10e6/uL (4.3-5.7); RED CELL DISTRIBUTION WIDTH 11.9 % (11.7-14.4)
[2017-12-29 06:41] LABS: ALANINE AMINOTRANSFERASE 17 IU/L (0-55); ALBUMIN 3.5 g/dL (3.5-5.0); ALBUMIN/GLOBULIN RATIO 1.3 (0.8-2.0); ALKALINE PHOSPHATASE 61 IU/L (40-150); AMYLASE 126 U/L (25-125); ANION GAP 9.7 mmol/L (8-16); BLOOD UREA NITROGEN 10 mg/dL (7-26); BUN/CREATININE RATIO 14 (6-25); CALCIUM 8.9 mg/dL (8.4-10.2); CARBON DIOXIDE 25 mmol/L (22-29); CHLORIDE 107 mmol/L (98-107); CREATININE, SERUM 0.74 mg/dL (0.72-1.25); EST GLOMERULAR FILTRATION RATE > 60 ML/MIN (60-); GLUCOSE 123 mg/dL (74-118); LIPASE 72 U/L (8-78); POTASSIUM 3.7 mmol/L (3.5-5.1); SODIUM 138 mmol/L (136-145)
[2017-12-29 08:12] VITALS: BP 125/78
[2017-12-29] MEDS: PANTOPRAZOLE 40 MG 10ML VIAL IV SCH (08:37)
[2017-12-29 10:12] VITALS: BP 125/78
--- NOTE | 2017-12-29 12:29 | Discharge Summary ---
HISTORY OF PRESENT ILLNESS: He is a 42-year-old male patient of mine who presented with a complaint of severe abdominal pain, epigastric pain, nausea, vomiting and dehydration. ADMITTING DIAGNOSIS 1. Acute gastritis. 2. Dehydration. 3. Suspected pancreatitis. 4. Enteritis. 5. Diabetes mellitus. 6. Possible diabetic gastroparesis. HOSPITAL COURSE SUMMARY: Patient was admitted with the above diagnoses. Patient was given IV fluid and IV Protonix and Reglan and Zofran p.r.n. The patient has improved significantly. Patient had a HIDA scan done, which was negative, and a gastric emptying study done was positive and patient was treated with Reglan. DISCHARGE DIAGNOSIS 1. Severe gastroparesis. 2. Dehydration. 3. Nausea, vomiting. DISPOSITION: Patient was being discharged on Reglan 10 mg t.i.d. and nightly, 4 times a day. Patient was advised to have a small frequent meal, and patient will need outpatient colonoscopy to rule out IBD. RADHA GILMORE MD Job#: [id number] [place]
== END 2017-12-29 11:22 | disposition home or self-care (01) | DRG 73 ==
LOC: ER 17:57 → ERHOLD 21:12 → MED/SURG3 23:04
PROVIDERS: ADMIT Internal Medicine; ATTEND Internal Medicine
DX: E11.43 Type 2 diabetes mellitus with diabetic autonomic (poly)neuropathy (principal); K85.90 Acute pancreatitis without necrosis or infection, unspecified; E86.0 Dehydration; K81.9 Cholecystitis, unspecified; K31.84 Gastroparesis; K29.70 Gastritis, unspecified, without bleeding; K52.9 Noninfective gastroenteritis and colitis, unspecified
CPT/HCPCS: 36415; 78227; 78264; 80053; 80307; 81001; 82150; 82948; 83690; 85025; 96374; 99284; A9537; A9541; J2765; J2805; J7030

== ENCOUNTER 2018-02-04 13:08 | Emergency (ER) | payer OTHER ==
[~2018-02-04] VITALS: Ht 175.3 cm; Wt 75.3 kg
[~2018-02-04 13:08] MED LIST changes: -IOPAMIDOL 370 MG/ML 200 ML INFUS..BTL INJ ONE; +LANTUS 3ML100 UNITS/ SQ; +METOCLOPRAMIDE10 MG PO; +NORVASC5 MG PO; +PANTOPRAZOLE SO40 MG PO; -SODIUM CHLORIDE 0.9% 50ML 50 ML ONE
[2018-02-04 13:51] LABS: BASOPHILS # (AUTO) 0.1 (0.0-0.1); BASOPHILS % 0.6 % (0.0-1.0); EOSINOPHILS % 0.3 % (0.0-6.0); HEMATOCRIT 43.6 % (38.2-49.6); LYMPHOCYTES # (AUTO) 1.4 (1.0-3.2); LYMPHOCYTES % 16.9 % (18.0-39.1); MEAN CORPUSCULAR HEMOGLOBIN 29.2 pg (28-32); MEAN CORPUSCULAR HGB CONC 34.4 g/dL (31-35); MEAN CORPUSCULAR VOLUME 84.8 fL (81-99); MONOCYTES # (AUTO) 0.4 (0.2-0.8); MONOCYTES % 5.1 % (4.4-11.3); NEUTROPHILS # (AUTO) 6.1 (2.1-6.9); NEUTROPHILS % 76.8 % (38.7-80.0); PLATELET COUNT 290 x10e3/uL (140-360); RED BLOOD COUNT 5.14 x10e6/uL (4.3-5.7); RED CELL DISTRIBUTION WIDTH 11.9 % (11.7-14.4)
[2018-02-04] MEDS ORDERED: ONDANSETRON HCL INJ 2 MG/ML VIAL IV STA (13:56)
[2018-02-04] MEDS ORDERED: SODIUM CHLORIDE 0.9% 1000ML 1,000 ML IV ONE (14:00)
[2018-02-04 14:11] LABS: ALANINE AMINOTRANSFERASE 27 IU/L (0-55); ALBUMIN 4.7 g/dL (3.5-5.0); ALBUMIN/GLOBULIN RATIO 1.2 (0.8-2.0); ALKALINE PHOSPHATASE 80 IU/L (40-150); ANION GAP 16.9 mmol/L (8-16); BLOOD UREA NITROGEN 18 mg/dL (7-26); BUN/CREATININE RATIO 18 (6-25); CARBON DIOXIDE 26 mmol/L (22-29); CHLORIDE 98 mmol/L (98-107); EST GLOMERULAR FILTRATION RATE > 60 ML/MIN (60-); GLUCOSE 115 mg/dL (74-118); POTASSIUM 3.9 mmol/L (3.5-5.1); SODIUM 137 mmol/L (136-145)
[2018-02-04] MEDS ORDERED: IOPAMIDOL 370 MG/ML 200 ML INFUS..BTL INJ ONE (14:59)
[2018-02-04] MEDS ORDERED: SODIUM CHLORIDE 0.9% 50ML 50 ML ONE (14:59)
[2018-02-04] MEDS ORDERED: METOCLOPRAMIDE HCL 10 MG/2ML VIAL IV ONE (15:15)
--- NOTE | 2018-02-04 15:24 | Diagnostic Imaging Report ---
PROCEDURE: CT ABDOMEN AND PELVIS WITH CONTRAST TECHNIQUE: The abdomen and pelvis were scanned utilizing a multidetector helical scanner from the diaphragm to the lesser trochanter after the IV administration of 100 cc of Isovue 370 and the oral administration of water. Coronal and sagittal multiplanar reformations were obtained. COMPARISON: CT the abdomen from 12/21/2017 INDICATIONS: EMESIS SINCE WEDNESDAY, ABDOMINAL PAIN FINDINGS: LOWER THORAX: Normal. HEPATOBILIARY: Diffuse hepatic steatosis. No focal hepatic lesions. No biliary ductal dilatation. SPLEEN: No splenomegaly. PANCREAS: No focal masses or ductal dilatation. ADRENALS: No adrenal nodules. KIDNEYS/URETERS: No hydronephrosis, stones, or solid mass lesions. PELVIC ORGANS/BLADDER: Unremarkable. PERITONEUM / RETROPERITONEUM: No free air or fluid. LYMPH NODES: No lymphadenopathy. VESSELS: Unremarkable. GI TRACT: No distention or wall thickening. The appendix is normal. BONES AND SOFT TISSUES: Degenerative changes at L5-S1 with mild retrolisthesis of L5 IMPRESSION: No specific findings to explain the patient's symptoms. Dictated by: Baudilio Hooper M.D. on 02/04/2018 at 15:28 Electronically approved by: Baudilio Hooper M.D. on 02/04/2018 at 15:28
[2018-02-04 16:14] LABS: CLARITY,URINE CLEAR (CLEAR); COLOR,URINE YELLOW (YELLOW); LEUKOCYTE ESTERASE ,URINE NEGATIVE (NEGATIVE); NITRITE,URINE NEGATIVE (NEGATIVE); PROTEIN,URINE DIPSTICK TRACE (NEGATIVE)
[2018-02-04 16:15] LABS: BILIRUBIN,URINE NEGATIVE (NEGATIVE); KETONES,URINE 3+ (NEGATIVE); URINE UROBILINOGEN 0.2 mg/dL (0.2 - 1)
[2018-02-04 16:24] LABS: EPITHELIAL CELLS,URINE RARE /LPF
[2018-02-04 16:26] LABS: BACTERIA,URINE RARE /HPF; HYALINE CASTS 0-1 (0-1)
[2018-02-04 16:27] LABS: MUCUS,URINE FEW (RARE)
[2018-02-04] MEDS ORDERED: SODIUM CHLORIDE 0.9% 1000ML 1,000 ML IV SCH (17:00)
[2018-02-04 18:23] VITALS: BP 110/72
== END 2018-02-04 18:13 | disposition home or self-care (01) ==
LOC: ER 13:08
DX: R10.11 Right upper quadrant pain (principal); R11.2 Nausea with vomiting, unspecified; K52.9 Noninfective gastroenteritis and colitis, unspecified
CPT/HCPCS: 36415; 74177; 80053; 81001; 85025; 99284; J2405; J2765; J7030; Q9967